=== PATIENT | female | born 2000 | race Hispanic/Latino ===

== ENCOUNTER 2018-12-25 13:40 | Emergency (ER) | payer SELFPAY ==
[2018-12-25] MEDS ORDERED: SILVER SULFADIAZINE CREAM 50 GM TP ONE (14:25)
== END 2018-12-25 14:43 | disposition home or self-care (01) ==
LOC: EDH 13:40
DX: T22.212A Burn of second degree of left forearm, initial encounter (principal); T22.211A Burn of second degree of right forearm, initial encounter; T24.211A Burn of second degree of right thigh, initial encounter; T25.221A Burn of second degree of right foot, initial encounter; T31.0 Burns involving less than 10% of body surface; Z72.0 Tobacco use; X12.XXXA Contact with other hot fluids, initial encounter; Y93.G3 Activity, cooking and baking; Y92.098 Other place in other non-institutional residence as the place of occurrence of the external cause; Y99.8 Other external cause status
CPT/HCPCS: 16020

== ENCOUNTER 2019-12-17 16:59 | Emergency (ER) | payer OTHER, SELFPAY ==
[2019-12-17] MEDS ORDERED: ACETAMINOPHEN 325 MG TAB ONE (17:16)
[2019-12-17 17:28] LABS: HCG,QUAL RESULT NEGATIVE (NEGATIVE)
[2019-12-17 17:30] LABS: APPEARANCE,URINE Clear (CLEAR); BILIRUBIN,URINE Negative (NEGATIVE); COLOR,URINE Yellow (YELLOW); GLUCOSE, URINE (UA) Negative (NEGATIVE); KETONES,URINE Negative (NEGATIVE); LEUKOCYTE ESTERASE ,URINE Moderate (NEGATIVE); NITRATE,URINE Negative (NEGATIVE); OCCULT BLOOD,URINE Negative (NEGATIVE); PROTEIN,URINE Negative (NEGATIVE); UROBILINOGEN,URINE 0.2 mg/dL (0.2-1.0)
[2019-12-17 17:38] LABS: BACTERIA,URINE Few /HPF (None Seen); RBC,URINE 0-1 /HPF (0-1); SQUAMOUS EPITHELIAL CELL,UR Few /HPF (0-2)
[2019-12-17 17:45] LABS: RAPID GROUP A STREP NEGATIVE (NEGATIVE)
== END 2019-12-17 19:18 | disposition home or self-care (01) ==
LOC: EDH 16:59
DX: U07.1 COVID-19 (principal); N30.00 Acute cystitis without hematuria; Z87.891 Personal history of nicotine dependence
CPT/HCPCS: 71045; 81001; 81025; 87088; 87804 ×2; 87880; 99284; U0003; 36415